=== PATIENT | male | born 1965 | race Caucasian/White ===

== ENCOUNTER 2024-03-01 17:43 | Emergency (ER) | payer MEDICARE, OTHER, SELFPAY ==
[2024-03-01 17:58] VITALS: BP 147/90
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
[2024-03-01] MEDS: ATIVAN 1 MG PO ×2 (18:48→20:57)
[2024-03-01 19:36] LABS: % Basophils 0.5 % (0-2); % Eosinophils 0.6 % (0-6); % Immature Granulocytes 0.2 % (0-0.5); % Lymphocytes 23.6 % (20.5-51.1); % Monocytes 6.8 % (1.7-9.3); % Neutrophils 68.3 % (42.2-75.2); Absolute Basophils 0.1 10^3/uL (0-0.2); Absolute Eosinophils 0.1 10^3/uL (0-0.7); Absolute Lymphocytes 2.2 10^3/uL (1.2-3.4); Absolute Monocytes 0.7 10^3/uL (0.1-0.6); Absolute Neutrophils 6.5 10^3/uL (1.4-6.5); Hematocrit 37.8 % (39.0-52.0); Hemoglobin 12.4 g/dL (13.0-18.0); Mean Corp Hgb Conc. 32.8 g/dL (33.0-37.0); Mean Corpuscular Hgb 25.3 pg (27.0-31.0); Mean Corpuscular Volume 77.1 fL (80.0-94.0); Nucleated Red Blood Cells % 0 % (-); Platelet Count 215 10^3/uL (130-400); Red Cell Dist. Width 23.3 % (11.5-14.5); White Blood Cell Count 9.5 10^3/uL (4.8-10.8)
[2024-03-01 19:49] LABS: Chloride 96 mmol/L (98-107); Potassium 2.8 mmol/L (3.5-5.1); Sodium 133 mmol/L (135-145)
[2024-03-01 19:52] LABS: ALT (SGPT) 25 U/L (0-50); AST (SGOT) 24 U/L (17-59); Acetaminophen < 10 ug/ml (10-30); Albumin 4.5 g/dl (3.5-5.0); Alkaline Phosphatase 94 U/L (38-126); Blood Urea Nitrogen 32 mg/dl (9-20); Calcium 9.6 mg/dl (8.4-10.2); Carbon Dioxide 26 mmol/L (22-30); Glucose 187 mg/dl (70-99); Salicylate < 1.0 mg/dl (2.0-20.0); Total Bilirubin 0.5 mg/dl (0.2-1.3); Total Protein 7.7 g/dl (6.3-8.2); eGFR > 60.00
[2024-03-01 19:53] LABS: Alcohol None Detected
[2024-03-01] MEDS: KCL 40 MEQ PO ×2 (20:06→20:41)
[2024-03-01 20:15] LABS: Magnesium 1.9 mg/dl (1.6-2.3)
[2024-03-01 20:22] LABS: Anisocytosis 1+; Normal RBC Morphology No
[2024-03-01 20:23] LABS: Macrocytosis Slight; Microcytosis Slight
[2024-03-01 20:24] LABS: Stomatocytes Slight
[2024-03-01] MEDS: SUBUTEX 8 MG SL (22:39)
[2024-03-01] MEDS: ELIQUIS 5 MG PO (23:29)
[2024-03-01] MEDS: LAMICTAL 50 MG PO (23:29)
[2024-03-01] MEDS: SEROQUEL 300 MG PO (23:30)
[2024-03-01 23:52] VITALS: BP 144/79
[2024-03-02] MEDS: NEURONTIN 400 MG PO ×2 (00:58→21:17)
[2024-03-02 01:32] LABS: COVID-19 Antigen Negative (Negative)
[2024-03-02 07:00] LABS: Blood Urea Nitrogen 27 mg/dl (9-20); Calcium 9.4 mg/dl (8.4-10.2); Carbon Dioxide 26 mmol/L (22-30); Chloride 99 mmol/L (98-107); Glucose 144 mg/dl (70-99); Potassium 3.4 mmol/L (3.5-5.1); Sodium 138 mmol/L (135-145); eGFR > 60.00
[2024-03-02] MEDS: NORVASC 5 MG PO (08:12)
[2024-03-02] MEDS: ELIQUIS 5 MG PO ×2 (08:12→21:17)
[2024-03-02 08:15] VITALS: BP 111/64
[2024-03-02 08:53] LABS: Benzodiazepines Positive (Negative); Buprenorphine Positive (Negative); Tricyclic Antidepressants Positive (Negative)
[2024-03-02 08:54] LABS: Amphetamines Negative (Negative); Barbiturates Negative (Negative); Cocaine Negative (Negative); Marijuana Negative (Negative); Methadone Negative (Negative); Methamphetamines Negative (Negative); Opiates Negative (Negative); Phencyclidine Negative (Negative)
[2024-03-02 09:03] LABS: Fentanyl, Urine Negative (Negative)
[2024-03-02] MEDS: LAMICTAL 50 MG PO ×2 (09:27→21:48)
[2024-03-02] MEDS: ATIVAN 1 MG PO ×2 (15:43→23:00)
[2024-03-02] MEDS: SUBUTEX 8 MG SL (19:12)
[2024-03-02 20:44] VITALS: BP 131/76
[2024-03-02] MEDS: SEROQUEL 300 MG PO (21:48)
--- NOTE | 2024-03-03 03:06 | DOWNTIME ---
There was a [email or web address] Downtime on 03/02/2024 from 0100 to 03/03/2024 at 0300. Downtime documentation of patient's care, including medication administrations, has been reconciled in the electronic record per guidelines. Refer to the
patient's paper chart under the miscellaneous tab to see printed paper medication records and downtime forms.
== END 2024-03-03 01:45 ==
LOC: EMR 17:43
PROVIDERS: EMERGENCY PHYSICIAN Emergency Medicine
DX: F99 Mental disorder, not otherwise specified (principal); F10.10 Alcohol abuse, uncomplicated; F17.200 Nicotine dependence, unspecified, uncomplicated; F41.9 Anxiety disorder, unspecified; Z91.51 Personal history of suicidal behavior; Z11.52 Encounter for screening for COVID-19; Z86.718 Personal history of other venous thrombosis and embolism; Z86.73 Personal history of transient ischemic attack (TIA), and cerebral infarction without residual deficits
CPT/HCPCS: 99285; 80048; 80053; 80143; 80179; 80306; 80307; 82077; 83735; 85025; 87811; 93005